=== PATIENT | female | born 1950 | race Caucasian/White ===

== ENCOUNTER 2017-11-02 14:26 | Emergency (ER) | payer MEDICARE ==
[~2017-11-02] VITALS: Ht 167.6 cm; Wt 120.0 kg
[2017-11-02] MEDS ORDERED: ACETAMINOPHEN 325 MG TABLET ONE (15:16)
[2017-11-02 15:27] LABS: BASOPHILS # (AUTO) 0.06 x10^3/uL (0-0.1); BASOPHILS % (AUTO) 1 % (0-1); EOSINOPHILS % (AUTO) 5 % (1-7); LYMPHOCYTES # (AUTO) 1.94 x10^3/uL (1-3.4); LYMPHOCYTES % (AUTO) 30 % (22-44); MD NO; MEAN CORPUSCULAR HEMOGLOBIN 29.5 pg (27.0-34.8); MEAN CORPUSCULAR HGB CONC 32.9 g/dL (32.4-35.8); MEAN CORPUSCULAR VOLUME 89.7 fL (80-100); MEAN PLATELET VOLUME 8.8 fL (7.4-10.4); MONOCYTES % (AUTO) 9 % (2-9); NEUTROPHILS # (AUTO) 3.63 x10^3/uL (1.8-6.8); NEUTROPHILS % (AUTO) 56 % (42-75); PLATELET COUNT 250 x10^3/uL (130-400); RED BLOOD COUNT 4.58 x10^6/uL (3.82-5.3); RED CELL DISTRIBUTION WIDTH 13.2 % (9.6-15.2)
[2017-11-02] MEDS ORDERED: ACETAMINOPHEN 325 MG TABLET PO ONE (15:30)
[2017-11-02] MEDS ORDERED: SODIUM CHLORIDE 0.9% 1,000ML IVBOLUS ONE (15:30)
[2017-11-02] MEDS ORDERED: PLEASE ENTER ALLERGIES MC SCH (15:30)
[2017-11-02] MEDS ORDERED: SODIUM CHLORIDE FLUSH 10ML SYR IVF ONE (15:30)
[2017-11-02 15:34] LABS: ALANINE AMINOTRANSFERASE 26 U/L (12-78); ALBUMIN 3.6 g/dL (3.4-5.0); ANION GAP 3 mmol/L (5-15); CALCIUM 9.5 mg/dL (8.5-10.1); CHLORIDE 108 mmol/L (98-107); CREATININE 0.89 mg/dL (0.55-1.02)
[2017-11-02 15:37] LABS: ALKALINE PHOSPHATASE 125 U/L (45-117); BILIRUBIN,TOTAL 0.3 mg/dL (0.2-1.0); TOTAL PROTEIN 7.4 g/dL (6.4-8.2)
[2017-11-02 17:52] VITALS: BP 138/82
== END 2017-11-02 17:54 | disposition home or self-care (01) ==
LOC: ED 15:55
DX: R42 Dizziness and giddiness (principal); R51 Headache
CPT/HCPCS: 36415; 70450; 80053; 85025; 93005; 96360; 99285; J7030

== ENCOUNTER 2017-12-20 18:56 | Inpatient (IN) | payer MEDICARE, OTHER ==
[~2017-12-20] VITALS: Ht 170.2 cm; Wt 128.5 kg
[2017-12-20] MEDS ORDERED: SODIUM CHLORIDE FLUSH 10ML SYR IVF ONE (19:30)
[2017-12-20] MEDS ORDERED: SODIUM CHLORIDE 0.9% 1,000ML IVBOLUS ONE (19:30)
[2017-12-20] MEDS ORDERED: ONDANSETRON 2MG/ML, 2ML IVPush ONE (19:30)
[2017-12-20 19:53] LABS: RAPID INFLUENZA A Negative (Negative); RAPID INFLUENZA B Negative (Negative)
[2017-12-20] MEDS ORDERED: ONDANSETRON 2MG/ML, 2ML ONE (19:58)
[2017-12-20 20:07] LABS: BASOPHILS # (AUTO) 0.03 x10^3/uL (0-0.1); BASOPHILS % (AUTO) 1 % (0-1); EOSINOPHILS # (AUTO) 0.01 x10^3/uL (0-0.4); EOSINOPHILS % (AUTO) 0 % (1-7); LYMPHOCYTES # (AUTO) 1.62 x10^3/uL (1-3.4); LYMPHOCYTES % (AUTO) 25 % (22-44); MD NO; MEAN CORPUSCULAR HGB CONC 33.7 g/dL (32.4-35.8); MEAN PLATELET VOLUME 8.9 fL (7.4-10.4); MONOCYTES # (AUTO) 0.63 x10^3/uL (0.2-0.8); MONOCYTES % (AUTO) 10 % (2-9); NEUTROPHILS # (AUTO) 4.23 x10^3/uL (1.8-6.8); NEUTROPHILS % (AUTO) 65 % (42-75); PLATELET COUNT 277 x10^3/uL (130-400); RED CELL DISTRIBUTION WIDTH 13.8 % (9.6-15.2)
[2017-12-20 20:19] LABS: ALANINE AMINOTRANSFERASE 40 U/L (12-78); ALBUMIN 3.8 g/dL (3.4-5.0); ANION GAP 6 mmol/L (5-15); CALCIUM 9.3 mg/dL (8.5-10.1); CHLORIDE 105 mmol/L (98-107); CREATININE 1.05 mg/dL (0.55-1.02)
[2017-12-20 20:21] LABS: ALKALINE PHOSPHATASE 111 U/L (45-117); BILIRUBIN,TOTAL 0.5 mg/dL (0.2-1.0); TOTAL PROTEIN 7.9 g/dL (6.4-8.2)
[2017-12-20 20:23] LABS: MICROSCOPIC AUTO
[2017-12-20 20:24] LABS: CULTURE INDICATED? YES
[2017-12-20 20:36] LABS: TROPONIN I < 0.015 ng/mL (0.000-0.045)
[2017-12-20] MEDS ORDERED: CEFTRIAXONE 1,000 MG in SODIUM CHLORIDE 0.9% 50 ML IVPB ONE (21:00)
[2017-12-20] MEDS ORDERED: CEFTRIAXONE PMX 1GM/50ML 50 ML ONE (21:13)
[2017-12-20] MEDS ORDERED: SODIUM CHLORIDE FLUSH 10ML SYR IVF PRN (22:00)
[2017-12-20] MEDS ORDERED: FLUCONAZOLE 100 MG TABLET PO ONE (22:00)
[2017-12-20] MEDS ORDERED: MULT-658 PO (22:09)
[2017-12-20] MEDS ORDERED: METF500T9 PO (22:09)
[2017-12-20] MEDS ORDERED: LISI40TA PO (22:09)
[2017-12-20] MEDS ORDERED: PREG50CA PO (22:09)
[2017-12-20] MEDS ORDERED: CHOL200074 PO (22:09)
[2017-12-20] MEDS ORDERED: SIMV20TA3 PO (22:09)
[2017-12-20] MEDS ORDERED: ASPI-621 PO (22:09)
[2017-12-20] MEDS ORDERED: ACET650S21 PO (22:09)
[2017-12-20] MEDS: CEFTRIAXONE PMX 1GM/50ML 50 ML IV SCH (22:20)
[2017-12-20] MEDS ORDERED: FLUCONAZOLE 100 MG TABLET ONE (22:23)
[2017-12-20] MEDS ORDERED: NS + 20MEQ KCL 1,000 ML IV ONE (22:23)
[2017-12-20] MEDS: PREGABALIN 25 MG CAPSULE PO SCH (22:30)
[2017-12-20] MEDS ORDERED: BISACODYL 10 MG SUPP PR PRN (22:30)
[2017-12-20] MEDS ORDERED: SIMVASTATIN 20 MG TABLET PO SCH (22:30)
[2017-12-20] MEDS ORDERED: ONDANSETRON 2MG/ML, 2ML IVPush PRN (22:30)
[2017-12-20] MEDS: metFORMIN XR 500 MG TAB.ER.24H PO SCH (22:30)
[2017-12-20] MEDS ORDERED: POLYETHYLENE GLYCOL 17 GM PACKET PO PRN (22:30)
[2017-12-20] MEDS ORDERED: ACETAMINOPHEN 325 MG TABLET PO PRN (22:30)
[2017-12-20] MEDS ORDERED: CHOLECALCIFEROL 1,000 UNIT TABLET PO SCH (22:30)
[2017-12-20] MEDS: NS + 20MEQ KCL 1,000 ML IV SCH (22:46)
[2017-12-21] MEDS: HEPARIN 5,000 UNITS/ML, 1ML SQ SCH ×3 (00:04→19:16)
[2017-12-21] MEDS ORDERED: ALBUTEROL/IPRATROPIUM 2.5MG/0.5MG, 3 ML NPPB PRN (00:30)
[2017-12-21 04:21] VITALS: BP 126/83
[2017-12-21 05:50] LABS: CHLORIDE 108 mmol/L (98-107)
[2017-12-21 05:58] LABS: ANION GAP 8 mmol/L (5-15); CALCIUM 8.8 mg/dL (8.5-10.1); CREATININE 0.92 mg/dL (0.55-1.02)
[2017-12-21 06:03] LABS: CLOSTRIDIUM DIFFICILE ANTIGEN NEGATIVE; CLOSTRIDIUM DIFFICILE TOXIN NEGATIVE (Negative)
[2017-12-21] MEDS: NS + 20MEQ KCL 1,000 ML IV SCH (08:16)
[2017-12-21 08:27] VITALS: BP 123/81
[2017-12-21] MEDS: SENNA/DOCUSATE TABLET PO SCH (09:00)
[2017-12-21] MEDS: metFORMIN XR 500 MG TAB.ER.24H PO SCH ×2 (09:00→22:32)
[2017-12-21] MEDS: ASPIRIN 81 MG TABLET EC PO SCH (09:39)
[2017-12-21] MEDS: MULTIVITAMIN 1 TABLET PO SCH (09:40)
[2017-12-21] MEDS: LISINOPRIL 20 MG TABLET PO SCH (09:41)
[2017-12-21] MEDS: PREGABALIN 25 MG CAPSULE PO SCH ×2 (09:51→22:32)
[2017-12-21] MEDS ORDERED: POTASSIUM CHLORIDE 20 MEQ TAB.ER.PRT PO ONE (11:00)
[2017-12-21 14:26] VITALS: BP 125/79
[2017-12-21] MEDS ORDERED: POTASSIUM CHLORIDE 20 MEQ TAB.ER.PRT ONE (17:07)
[2017-12-21 19:28] VITALS: BP 123/80
[2017-12-21 19:56] VITALS: BP 157/76
[2017-12-21 22:28] LABS: HEMOGLOBIN A1C 7.4 % (4.2-6.3)
[2017-12-21] MEDS: CEFTRIAXONE PMX 1GM/50ML 50 ML IV SCH (22:32)
[2017-12-21] MEDS: SIMVASTATIN 20 MG TABLET PO SCH (22:32)
[2017-12-22] MEDS: HEPARIN 5,000 UNITS/ML, 1ML SQ SCH ×3 (03:00→19:38)
[2017-12-22 03:05] VITALS: BP 118/81
[2017-12-22 08:08] LABS: BASOPHILS # (AUTO) 0.04 x10^3/uL (0-0.1); BASOPHILS % (AUTO) 1 % (0-1); EOSINOPHILS # (AUTO) 0.13 x10^3/uL (0-0.4); EOSINOPHILS % (AUTO) 2 % (1-7); LYMPHOCYTES # (AUTO) 1.39 x10^3/uL (1-3.4); LYMPHOCYTES % (AUTO) 26 % (22-44); MD NO; MEAN CORPUSCULAR HEMOGLOBIN 29.4 pg (27.0-34.8); MEAN CORPUSCULAR VOLUME 89.2 fL (80-100); MEAN PLATELET VOLUME 8.5 fL (7.4-10.4); MONOCYTES % (AUTO) 9 % (2-9); NEUTROPHILS # (AUTO) 3.31 x10^3/uL (1.8-6.8); NEUTROPHILS % (AUTO) 62 % (42-75); PLATELET COUNT 218 x10^3/uL (130-400); RED BLOOD COUNT 4.26 x10^6/uL (3.82-5.3); RED CELL DISTRIBUTION WIDTH 13.5 % (9.6-15.2)
[2017-12-22 08:14] LABS: ANION GAP 7 mmol/L (5-15); CALCIUM 9.2 mg/dL (8.5-10.1); CHLORIDE 107 mmol/L (98-107)
[2017-12-22 08:30] VITALS: BP 120/72
[2017-12-22] MEDS: SENNA/DOCUSATE TABLET PO SCH (09:00)
[2017-12-22] MEDS: PREGABALIN 25 MG CAPSULE PO SCH ×2 (11:29→22:09)
[2017-12-22] MEDS: LISINOPRIL 20 MG TABLET PO SCH (11:30)
[2017-12-22] MEDS: MULTIVITAMIN 1 TABLET PO SCH (11:30)
[2017-12-22] MEDS: ASPIRIN 81 MG TABLET EC PO SCH (11:31)
[2017-12-22] MEDS: metFORMIN XR 500 MG TAB.ER.24H PO SCH ×2 (11:31→22:09)
[2017-12-22 13:15] VITALS: BP 158/88
[2017-12-22 19:50] VITALS: BP 120/80
[2017-12-22] MEDS: SIMVASTATIN 20 MG TABLET PO SCH (22:09)
[2017-12-22] MEDS: CEFDINIR 300 MG CAPSULE PO SCH (22:09)
[2017-12-23 01:31] VITALS: BP 100/66
[2017-12-23] MEDS: HEPARIN 5,000 UNITS/ML, 1ML SQ SCH ×3 (03:15→19:55)
[2017-12-23 05:43] LABS: ANION GAP 8 mmol/L (5-15); CALCIUM 8.7 mg/dL (8.5-10.1); CHLORIDE 106 mmol/L (98-107); CREATININE 0.83 mg/dL (0.55-1.02)
[2017-12-23 06:10] LABS: BASOPHILS # (AUTO) 0.05 x10^3/uL (0-0.1); BASOPHILS % (AUTO) 1 % (0-1); EOSINOPHILS # (AUTO) 0.25 x10^3/uL (0-0.4); EOSINOPHILS % (AUTO) 4 % (1-7); LYMPHOCYTES # (AUTO) 1.64 x10^3/uL (1-3.4); LYMPHOCYTES % (AUTO) 25 % (22-44); MD NO; MEAN CORPUSCULAR HEMOGLOBIN 30.2 pg (27.0-34.8); MEAN CORPUSCULAR HGB CONC 33.5 g/dL (32.4-35.8); MEAN CORPUSCULAR VOLUME 90.1 fL (80-100); MEAN PLATELET VOLUME 9.6 fL (7.4-10.4); MONOCYTES % (AUTO) 8 % (2-9); NEUTROPHILS # (AUTO) 4.07 x10^3/uL (1.8-6.8); NEUTROPHILS % (AUTO) 63 % (42-75); PLATELET COUNT 231 x10^3/uL (130-400); RED BLOOD COUNT 4.43 x10^6/uL (3.82-5.3); RED CELL DISTRIBUTION WIDTH 13.3 % (9.6-15.2)
[2017-12-23 07:05] VITALS: BP 115/77
[2017-12-23] MEDS: PREGABALIN 25 MG CAPSULE PO SCH ×2 (08:30→19:52)
[2017-12-23] MEDS: metFORMIN XR 500 MG TAB.ER.24H PO SCH ×2 (08:30→19:52)
[2017-12-23] MEDS: CEFDINIR 300 MG CAPSULE PO SCH ×2 (08:30→19:52)
[2017-12-23] MEDS: LISINOPRIL 20 MG TABLET PO SCH (08:31)
[2017-12-23] MEDS: MULTIVITAMIN 1 TABLET PO SCH (08:31)
[2017-12-23] MEDS: ASPIRIN 81 MG TABLET EC PO SCH (08:31)
[2017-12-23] MEDS: SENNA/DOCUSATE TABLET PO SCH (08:31)
[2017-12-23] MEDS: SIMVASTATIN 20 MG TABLET PO SCH (08:31)
[2017-12-23 13:00] VITALS: BP 122/78
[2017-12-23 19:34] VITALS: BP 147/91
[2017-12-24 02:55] VITALS: BP 101/64
[2017-12-24] MEDS: HEPARIN 5,000 UNITS/ML, 1ML SQ SCH (03:20)
[2017-12-24 05:22] LABS: BASOPHILS # (AUTO) 0.04 x10^3/uL (0-0.1); BASOPHILS % (AUTO) 1 % (0-1); EOSINOPHILS # (AUTO) 0.22 x10^3/uL (0-0.4); EOSINOPHILS % (AUTO) 4 % (1-7); LYMPHOCYTES % (AUTO) 28 % (22-44); MD NO; MEAN CORPUSCULAR HEMOGLOBIN 29.2 pg (27.0-34.8); MEAN CORPUSCULAR HGB CONC 33.2 g/dL (32.4-35.8); MEAN CORPUSCULAR VOLUME 88.2 fL (80-100); MEAN PLATELET VOLUME 9.4 fL (7.4-10.4); MONOCYTES # (AUTO) 0.62 x10^3/uL (0.2-0.8); MONOCYTES % (AUTO) 10 % (2-9); NEUTROPHILS # (AUTO) 3.69 x10^3/uL (1.8-6.8); NEUTROPHILS % (AUTO) 58 % (42-75); PLATELET COUNT 221 x10^3/uL (130-400); RED BLOOD COUNT 4.34 x10^6/uL (3.82-5.3); RED CELL DISTRIBUTION WIDTH 13.5 % (9.6-15.2)
[2017-12-24 05:32] LABS: ALBUMIN 3.2 g/dL (3.4-5.0); ANION GAP 7 mmol/L (5-15); CALCIUM 9.3 mg/dL (8.5-10.1); CHLORIDE 106 mmol/L (98-107)
[2017-12-24 05:34] LABS: CREATININE 0.89 mg/dL (0.55-1.02)
[2017-12-24] MEDS: PREGABALIN 25 MG CAPSULE PO SCH (07:39)
[2017-12-24] MEDS: LISINOPRIL 20 MG TABLET PO SCH (07:39)
[2017-12-24] MEDS: CEFDINIR 300 MG CAPSULE PO SCH (07:39)
[2017-12-24] MEDS: ASPIRIN 81 MG TABLET EC PO SCH (07:40)
[2017-12-24] MEDS: SENNA/DOCUSATE TABLET PO SCH (07:40)
[2017-12-24] MEDS: MULTIVITAMIN 1 TABLET PO SCH (07:40)
[2017-12-24] MEDS: metFORMIN XR 500 MG TAB.ER.24H PO SCH (07:40)
[2017-12-24] MEDS: SIMVASTATIN 20 MG TABLET PO SCH (07:40)
[2017-12-24 07:57] VITALS: BP 109/68
== END 2017-12-24 11:09 | disposition home or self-care (01) | DRG 690 ==
LOC: ED 21:20 → EDIP 22:36 → 3NE 23:00 → DCLOUNGE 12-24 11:01
PROVIDERS: ADMIT Hospitalist; ATTEND Hospitalist
DX: N30.91 Cystitis, unspecified with hematuria (principal); E87.5 Hyperkalemia; J44.9 Chronic obstructive pulmonary disease, unspecified; E66.01 Morbid (severe) obesity due to excess calories; E78.5 Hyperlipidemia, unspecified; E11.9 Type 2 diabetes mellitus without complications; B37.2 Candidiasis of skin and nail; Z68.41 Body mass index [BMI] 40.0-44.9, adult; E87.6 Hypokalemia; E66.9 Obesity, unspecified; I10 Essential (primary) hypertension; Z82.49 Family history of ischemic heart disease and other diseases of the circulatory system; Z90.710 Acquired absence of both cervix and uterus; Z90.711 Acquired absence of uterus with remaining cervical stump; Z98.51 Tubal ligation status; Z90.49 Acquired absence of other specified parts of digestive tract; Z88.0 Allergy status to penicillin; Z88.8 Allergy status to other drugs, medicaments and biological substances; Z88.5 Allergy status to narcotic agent
CPT/HCPCS: 36415; 71046; 80048; 80053; 81001; 82040; 83036; 83690; 84484; 85025; 87086; 87324; 87400; 93005; 96361; 96374; J0696; J1644; J2405; J3480; J7030

== ENCOUNTER 2020-09-11 10:48 | Emergency (ER) | payer MEDICARE, OTHER ==
[~2020-09-11] VITALS: Ht 170.2 cm; Wt 131.2 kg
[~2020-09-11 10:48] MED LIST: ACET650S21 PO; ASPI81TA45 PO; CHOL200074 PO; LISI40TA PO; METF-754 PO; MULT-658 PO; PREG50CA PO; SIMV20TA19 PO
[2020-09-11] MEDS ORDERED: HYDROcodone/APAP 5/325 TABLET ONE (11:09)
[2020-09-11] MEDS ORDERED: HYDROcodone/APAP 5/325 TABLET PO ONE (11:30)
[2020-09-11 13:08] VITALS: BP 150/95
== END 2020-09-11 13:15 | disposition home or self-care (01) ==
LOC: ED 13:10
DX: S63.521A Sprain of radiocarpal joint of right wrist, initial encounter (principal); S40.011A Contusion of right shoulder, initial encounter; S70.01XA Contusion of right hip, initial encounter; I10 Essential (primary) hypertension; E11.9 Type 2 diabetes mellitus without complications; E78.5 Hyperlipidemia, unspecified; J44.9 Chronic obstructive pulmonary disease, unspecified; W01.0XXA Fall on same level from slipping, tripping and stumbling without subsequent striking against object, initial encounter; Y93.89 Activity, other specified; Y92.89 Other specified places as the place of occurrence of the external cause; Y99.8 Other external cause status
CPT/HCPCS: 29125; 99284

== ENCOUNTER → 2021-04-04 | Outpatient (CLI) | payer MEDICARE ==
[~2021-04-04] MED LIST changes: -LISI40TA PO; +LISI40TA9 PO
== END | disposition home or self-care (01) ==
LOC: RAD 13:52
PROVIDERS: ATTEND Student in an Organized Health Care Education/Training Program
DX: R22.42 Localized swelling, mass and lump, left lower limb (principal)